=== PATIENT | male | born 1955 | race Hispanic/Latino ===

== ENCOUNTER 2017-11-29 07:13 | Emergency (ER) | payer OTHER ==
[2017-11-29 07:29] VITALS: TEMP 98.1; O2SAT 99
--- NOTE | 2017-11-29 08:10 | ED PDOC ---
Arrival/HPI - General Chief Complaint: Lower Extremity Problem/Injury Time Seen by Provider: 11/29/17 07:19 Historian: Patient - History of Present Illness Narrative History of Present Illness (Text): 11/29/17 08:00 62 year old male, whose PMH includes depression, osteoporosis, and sleep apnea, who presents to the emergency department complaining of left sided ankle injury at work prior to arrival. Patient reports his ankle got caught in between the pallet matteo and crushed it, causing pain associated with swelling and difficulty ambulating. Patient denies fall, or other bodily injuries. He denies numbness, tingling, or other complaints. Time/Duration: Prior to Arrival Symptom Onset: Sudden Symptom Course: Unchanged Context: Work Past Medical History - Provider Review Nursing Documentation Reviewed: Yes - Infectious Disease Hx of Infectious Diseases: None - Cardiac Hx Cardiac Disorders: No - Pulmonary Hx Respiratory Disorders: No - Neurological Hx Neurological Disorder: No - Renal Hx Renal Disorder: No - Endocrine/Metabolic Hx Endocrine Disorders: No - Hematological/Oncological Hx Blood Disorders: No - Integumentary Hx Dermatological Disorder: No - Musculoskeletal/Rheumatological Hx Osteoporosis: Yes - Gastrointestinal Hx Gastrointestinal Disorders: No - Genitourinary/Gynecological Hx Genitourinary Disorders: No - Psychiatric Hx Psychophysiologic Disorder: No Hx Substance Use: No - Surgical History Hx Orthopedic Surgery: Yes - Anesthesia Hx Anesthesia: Yes Hx Anesthesia Reactions: No Family/Social History - Physician Review Nursing Documentation Reviewed: Yes Family/Social History: Unknown Family HX Smoking Status: Unknown If Ever Smoked Hx Alcohol Use: No Hx Substance Use: No Allergies/Home Meds Allergies/Adverse Reactions: Allergies No Known Allergies Allergy (Verified 11/29/17 07:26) Review of Systems - Physician Review All systems were reviewed & negative as marked: Yes - Review of Systems Respiratory: absent: SOB Cardiovascular: absent: Chest Pain Musculoskeletal: Other (left ankle pain s/p injury at work) Physical Exam Vital Signs Reviewed: Yes Vital Signs Temp Pulse Resp BP Pulse Ox 11/29/17 09:54 72 18 169/90 H 99 11/29/17 07:28 98.1 F 65 16 179/103 H 99 Temperature: Afebrile Blood Pressure: Hypertensive Pulse: Regular Respiratory Rate: Normal Appearance: Positive for: Well-Appearing, Non-Toxic, Comfortable Pain Distress: None Mental Status: Positive for: Alert and Oriented X 3 - Systems Exam Head: Present: Atraumatic, Normocephalic Pupils: Present: PERRL Extroacular Muscles: Present: EOMI Conjunctiva: Present: Normal Lower Extremity: Present: NORMAL PULSES (+2), Tenderness (mid-tibia), Swelling ( left ankle on medial side), Erythema, Neurovascularly Intact. No: Edema, Normal ROM (decrease ROM) Neurological: Present: GCS=15, CN II-XII Intact, Speech Normal Skin: Present: Warm, Dry, Normal Color. No: Rashes Psychiatric: Present: Alert, Oriented x 3, Normal Insight, Normal Concentration Medical Decision Making ED Course and Treatment: 11/29/17 Impression: 62 year old male, with swelling to his ankle on medial side and erythema, tenderness on mid-tibia with decreased ROM. No open fracture. Differential Diagnosis included but are not limited to: ankle injury r/o fx r/ o sprain Plan: -- Ankle, Foot, and Tibia x-ray -- Motrin -- Reassess and disposition Progress Notes: 11/29/17 09:00 X-rays were read by me. Patient has a distal tibail fx and was placed in a posterior leg splint. On reevaluation the patient feels better and is in no acute distress. I have discussed the results and plan with the patient, who expresses understanding. Patient given the opportunity to ask questions, all questions were answered and there is agreement with the plan to discharge the patient home and advised to take Motrin for pain and inflammation, along with rest and leg elevation. Patient was instructed to use crutches and he will follow up with his orthopedic doctor in [place], [place]. - RAD Interpretation Radiology Orders: 11/29/17 07:51 ANKLE LEFT 3 VIEWS ROUTINE [RAD] Stat FOOT LEFT 3 VIEWS ROUTINE [RAD] Stat TIBIA FIBULA LEFT [RAD] Stat Ammonia Refrigeration Worker: ED Physician, Radiologist - Medication Orders Current Medication Orders: Discontinued Medications Ibuprofen (Motrin Tab) 600 mg PO STAT STA Stop: 11/29/17 07:54 Last Admin: 11/29/17 07:58 Dose: 600 mg MAR Pain/Vitals Document 11/29/17 07:58 [facility] (Rec: 11/29/17 08:10 [facility] [id number]) Pain Reassessment Is This A Pain ReAssessment? No - Scribe Statement The provider has reviewed the documentation as recorded by the Scribe Belle Dodgedua Provider Scribe Attestation: All medical record entries made by the Denia were at my direction and personally dictated by me. I have reviewed the chart and agree that the record accurately reflects my personal performance of the history, physical exam, medical decision making, and the department course for this patient. I have also personally directed, reviewed, and agree with the discharge instructions and disposition. Disposition/Present on Arrival - Present on Arrival Any Indicators Present on Arrival: No History of DVT/PE: No History of Uncontrolled Diabetes: No Urinary Catheter: No History of Decub. Ulcer: No History Surgical Site Infection Following: None - Disposition Have Diagnosis and Disposition been Completed?: Yes Diagnosis: Ankle fracture, left Disposition: HOME/ ROUTINE Disposition Time: 10:13 Patient Plan: Discharge Condition: IMPROVED Discharge Instructions (ExitCare): Ankle Fracture Additional Instructions: Mr Gill, thank you for letting us take care of you today. Your provider was Dr. May. You were treated for Left Ankle Fracture. The emergency medical care you received today was directed at your acute symptoms. If you were prescribed any medication, please fill it and take as directed. It may take several days for your symptoms to resolve. Return to the Emergency Department if your symptoms worsen, do not improve, or if you have any other problems. Please contact your doctor or call one of the physicians/clinics you have been referred to that are listed on the Patient Visit Information form that is included in your discharge packet. Bring any paperwork you were given at discharge with you along with any medications you are taking to your follow up visit. Our treatment cannot replace ongoing medical care by a primary care provider (PCP) outside of the emergency department. Thank you for allowing the [facility] team to be part of your care today. If you had an X-Ray or CT scan: A Radiologist will review the ED reading if any change in treatment is needed we will contact you. If you had a blood, urine, or wound culture: It will take several days for the results, if any change in treatment is needed we will contact you. If you had an STI test: It will take 48 hours for the results. Please call after 1 week if you have not heard back. Prescriptions: Ibuprofen [Motrin] 600 mg PO Q6 PRN #30 tab PRN Reason: Pain, Moderate (4-7) Referrals: [facility], [Primary Care Provider] - Follow up with primary Nathan Sun MD [Staff Provider] - Follow up with primary Forms: Applimation (Georgian), WORK NOTE
[2017-11-29 09:54] VITALS: BP 169/90; PULSE 72; RESP 18
--- NOTE | 2017-11-29 10:04 | RAD ---
PROCEDURE: Left Ankle Radiographs. HISTORY: injury r/o fx COMPARISON: None FINDINGS: BONES: There is a transverse fracture through the medial malleolus. There is a large area of lucency around the fracture site which is suggestive of a lytic lesion JOINTS: Normal. No osteoarthritis. Ankle mortise maintained. Talar dome intact SOFT TISSUES: Normal. OTHER FINDINGS: None. IMPRESSION: There is a transverse fracture through the medial malleolus. There is a large area of lucency around the fracture site which is suggestive of a lytic lesion
--- NOTE | 2017-11-29 13:15 | RAD ---
PROCEDURE: Radiographs of the left tibia and fibula. HISTORY: injury r/o fx COMPARISON: None available. TECHNIQUE: Frontal and lateral views obtained. FINDINGS: BONES: No fracture or destructive lesion. JOINT SPACES: Unremarkable. OTHER FINDINGS: None. IMPRESSION: Unremarkable radiographs of the left tibia and fibula.
--- NOTE | 2017-11-29 13:18 | RAD ---
PROCEDURE: Left Foot Radiographs. HISTORY: injury r/o fx COMPARISON: None. FINDINGS: BONES: There is a healing fracture of the 5th proximal phalanx JOINTS: Normal. SOFT TISSUES: Normal. OTHER FINDINGS: The ankle study shows a displaced fracture of the medial malleolus IMPRESSION: There is a healing fracture of the 5th proximal phalanx
== END 2017-11-29 10:17 | disposition home or self-care (01) ==
LOC: ED 07:13
DX: S82.892A Other fracture of left lower leg, initial encounter for closed fracture (principal); W23.0XXA Caught, crushed, jammed, or pinched between moving objects, initial encounter; Y92.89 Other specified places as the place of occurrence of the external cause; Y99.8 Other external cause status